=== PATIENT | male | born 1970 | race Two or more races ===

== ENCOUNTER 2022-04-08 04:43 | Day surgery (SDC) | payer BC, OTHER ==
[2022-04-01 12:47] VITALS: BMI 29.8
[2022-04-08] MEDS ORDERED: ACETAMINOPHEN INJECTION 200 ML IVPB ONE (07:11)
[2022-04-08] MEDS ORDERED: DEXMEDETOMIDINE HCL 200 MCG/2 ML IVPB ONE (07:11)
[2022-04-08] MEDS ORDERED: ACETAMINOPHEN 1000 MG/100 ML BAG IVPB ONE (07:14)
[2022-04-08] MEDS ORDERED: DEXTROSE 5%-0.45% SALINE 1,000 ML IV SCH (07:15)
[2022-04-08] MEDS ORDERED: LIDOCAINE HCL 1%, 10 MG/ML (20ML VIAL) ONE (07:26)
[2022-04-08] MEDS ORDERED: BACITRACIN 15 GM TUBE TOPICAL OINTMENT ONE (07:27)
[2022-04-08] MEDS ORDERED: MIDAZOLAM HCL 2 MG/2 ML SINGLE DOSE VIAL ONE (07:40)
[2022-04-08] MEDS ORDERED: PROPOFOL 20 ML ONE ×3 (07:46)
[2022-04-08] MEDS ORDERED: SUCCINYLCHOLINE CHLORIDE 200 MG/10 ML SYRINGE ONE (07:46)
[2022-04-08] MEDS ORDERED: KETAMINE HCL 200 MG/20 ML VIAL ONE (07:52)
[2022-04-08] MEDS ORDERED: LIDOCAINE HCL 1%, 10 MG/ML (20ML VIAL) INF ONE ×2 (08:06)
[2022-04-08] MEDS ORDERED: ROCURONIUM BROMIDE 50 MG/5 ML SYRINGE ONE (08:23)
[2022-04-08] MEDS ORDERED: SUGAMMADEX SODIUM 200 MG/2 ML VIAL ONE (08:23)
[2022-04-08] MEDS ORDERED: IBUPROFEN 800 MG/8 ML IJ IVPB SCH (09:45)
[2022-04-08 10:20] VITALS: BP 122/73; PULSE 61; TEMP 97.7
== END 2022-04-08 10:15 | disposition home or self-care (01) ==
LOC: JASU-SURG 04:43
PROVIDERS: ATTEND Urology
PROC: 0VTTXZZ Resection of Prepuce, External Approach (ICD-10-PCS; principal; 2022-04-08 07:30)
DX: N47.1 Phimosis (principal)
CPT/HCPCS: 82962; 88304-TC; 94760

== ENCOUNTER 2022-09-30 04:18 | Day surgery (SDC) | payer BC, OTHER ==
[2022-09-29 12:18] VITALS: BMI 28.7
[2022-09-30] MEDS ORDERED: BACITRACIN 15 GM TUBE TOPICAL OINTMENT ONE (13:23)
[2022-09-30] MEDS ORDERED: ACETAMINOPHEN 1000 MG/100 ML BAG IVPB ONE (13:37)
[2022-09-30] MEDS ORDERED: DEXTROSE 5%-0.45% SALINE 1,000 ML IV SCH (13:45)
[2022-09-30] MEDS ORDERED: MIDAZOLAM HCL 2 MG/2 ML SINGLE DOSE VIAL ONE (14:02)
[2022-09-30] MEDS ORDERED: FENTANYL CITRATE/PF 50 MCG/ML VIAL ONE ×2 (14:02→14:27)
[2022-09-30] MEDS ORDERED: PROPOFOL 20 ML ONE (14:03)
[2022-09-30] MEDS ORDERED: ceFAZolin SODIUM 1 GM VIAL IVPB ONE (14:17)
[2022-09-30] MEDS ORDERED: oxyCODONE HCL 5 MG TABLET PO PRN (14:35)
[2022-09-30] MEDS ORDERED: ONDANSETRON 4 MG/2 ML VIAL IVPUSH PRN (14:35)
[2022-09-30] MEDS ORDERED: PROMETHAZINE HCL 25 MG/1 ML VIAL IVPUSH PRN (14:35)
[2022-09-30] MEDS ORDERED: LACTATED RINGERS SOLUTION 1,000 ML IV SCH (14:45)
[2022-09-30] MEDS ORDERED: IBUPROFEN 800 MG/8 ML IJ IVPB SCH (16:00)
[2022-09-30] MEDS ORDERED: IBUPROFEN 800 MG/8 ML IJ IVPB ONE (16:31)
[2022-09-30 17:08] VITALS: BP 118/74; PULSE 60; RESP 20
[2022-09-30 17:14] VITALS: TEMP 97.2
== END 2022-09-30 17:37 | disposition home or self-care (01) ==
LOC: JASU-SURG 04:18
PROVIDERS: ATTEND Urology
PROC: 0VTTXZZ Resection of Prepuce, External Approach (ICD-10-PCS; principal; 2022-09-30 14:00)
DX: N48.89 Other specified disorders of penis (principal)
CPT/HCPCS: 82962; 94760

== ENCOUNTER 2023-03-31 05:44 | Day surgery (SDC) | payer BC, OTHER ==
[2023-03-30 11:43] VITALS: BMI 29.0
[2023-03-31] MEDS ORDERED: PROPOFOL 40 ML ONE (15:30)
[2023-03-31] MEDS ORDERED: SUCCINYLCHOLINE CHLORIDE 200 MG/10 ML SYRINGE ONE (15:31)
[2023-03-31] MEDS ORDERED: MIDAZOLAM HCL 2 MG/2 ML SINGLE DOSE VIAL ONE (15:31)
[2023-03-31] MEDS ORDERED: ACETAMINOPHEN 1000 MG/100 ML BAG IVPB ONE (15:31)
[2023-03-31] MEDS ORDERED: LIDOCAINE HCL 1%, 10 MG/ML (10ML VIAL) MDV ONE (15:38)
[2023-03-31] MEDS ORDERED: HYDROmorphone HCl 2 MG/ML VIAL ONE (15:38)
[2023-03-31] MEDS ORDERED: LIDOCAINE 1% P/F 10 MG/ML VIAL INF ONE (15:54)
[2023-03-31] MEDS ORDERED: oxyCODONE HCL 5 MG TABLET PO PRN (16:12)
[2023-03-31] MEDS ORDERED: ONDANSETRON 4 MG/2 ML VIAL IVPUSH PRN (16:12)
[2023-03-31] MEDS ORDERED: LACTATED RINGERS SOLUTION 1,000 ML IV SCH (16:15)
[2023-03-31 17:56] VITALS: TEMP 97.8
[2023-03-31 19:02] VITALS: BP 127/77; PULSE 58; RESP 18
== END 2023-03-31 18:35 | disposition home or self-care (01) ==
LOC: JASU-SURG 05:44
PROVIDERS: ATTEND Urology
PROC: 0VTTXZZ Resection of Prepuce, External Approach (ICD-10-PCS; principal; 2023-03-31 15:00)
DX: L90.5 Scar conditions and fibrosis of skin (principal); N47.1 Phimosis
CPT/HCPCS: 82962; 88304-TC; 94760